=== PATIENT | male | born 1955 | race Caucasian/White ===

== ENCOUNTER 2021-05-01 18:21 | Observation (INO) ==
[2021-05-01 19:21] LABS: Basophils % 0.8 % (0.0-0.8); Eosinophils # 0.1 10*3/uL (0.0-0.87); Eosinophils % 2.1 % (0.00-10.9); Hematocrit 41.5 VOL% (42.0-52.0); Hemoglobin 13.7 GM/DL (14.0-18.0); Immature Granulocytes % 0.2 %; Immature Granulocytes Absolute 0.01 #; Lymphocytes # 1.2 10*3/uL (1.4-4.0); Lymphocytes % 25.6 % (21.2-54.2); Mean Corpuscular Volume 89.8 FL (87-102); Mean Platelet Volume 11.2 FL (9.6-12.0); Monocytes % 8.1 % (1.7-12.7); Neutrophils % 63.2 % (38.7-73.9); Platelet Count 96 T/CUMM (130-400); Red Blood Count 4.62 MC/CUMM (3.8-5.5); White Blood Count 4.8 T/CUMM (4-12)
[2021-05-01 20:18] LABS: Hypochromasia 2+; Microcytosis 2+
[2021-05-01 20:19] LABS: Platelet Estimate Decreased
[2021-05-01 20:21] LABS: Albumin 3.5 G/DL (3.4-5.0); Bilirubin,Total 0.6 MG/DL (0.20-1.00); Calcium 9.2 MG/DL (8.5-10.1); Osmolality,Calculated 277.5 MOS/KG (273-304); Potassium 3.6 MMOL/L (3.5-5.1); Total Protein 7.7 G/DL (6.4-8.2)
[2021-05-01] MEDS ORDERED: ASPIRIN 325 MG TABLET PO STA (20:21)
[2021-05-01] MEDS ORDERED: ONDANSETRON 4 MG/2 ML VIAL IV STA (20:21)
[2021-05-01] MEDS ORDERED: SODIUM CHLORIDE 0.9% 1,000 ML IV STA (20:21)
[2021-05-01] MEDS ORDERED: MORPHINE 2 MG/1 ML SYRINGE IV STA (20:21)
[2021-05-01] MEDS ORDERED: KETOROLAC 30 MG/1 ML VIAL IV STA (20:40)
[2021-05-01] MEDS ORDERED: KETOROLAC 30 MG/1 ML VIAL ONE (20:44)
[2021-05-01] MEDS ORDERED: MORPHINE 2 MG/1 ML SYRINGE IV PRN (21:50)
[2021-05-01] MEDS ORDERED: guaiFENesin/DM ER 600-30 MG TABLET PO PRN (21:50)
[2021-05-01] MEDS ORDERED: GLUCAGON 1 MG VIAL IM PRN ×2 (21:50)
[2021-05-01] MEDS ORDERED: hydrALAZINE 20 MG/1 ML VIAL IV PRN (21:50)
[2021-05-01] MEDS ORDERED: diphenhydrAMINE CAP 25 MG CAPSULE PO PRN (21:50)
[2021-05-01] MEDS ORDERED: ACETAMINOPHEN 325 MG TABLET PO PRN (21:50)
[2021-05-01] MEDS ORDERED: ONDANSETRON 4 MG/2 ML VIAL IV PRN (21:50)
[2021-05-01] MEDS ORDERED: NICOTINE 21 MG/24 HR PATCH TRANSDERM PRN (21:50)
[2021-05-01] MEDS ORDERED: DEXTROSE 50% 25 GM/50 ML VIAL IV PRN ×2 (21:50)
[2021-05-01] MEDS ORDERED: ZALEPLON 5 MG CAPSULE PO PRN (21:50)
[2021-05-01] MEDS ORDERED: HYDROmorphone 2 MG/1 ML VIAL IV SCH (23:47)
[2021-05-02] MEDS ORDERED: NITROGLYCERIN SL 0.4 MG TABLET SL PRN (00:16)
[2021-05-02 05:27] LABS: Basophils % 0.6 % (0.0-0.8); Eosinophils # 0.1 10*3/uL (0.0-0.87); Eosinophils % 1.7 % (0.00-10.9); Hematocrit 38.9 VOL% (42.0-52.0); Hemoglobin 12.8 GM/DL (14.0-18.0); Immature Granulocytes % 0.6 %; Immature Granulocytes Absolute 0.02 #; Lymphocytes % 27.4 % (21.2-54.2); Mean Corpuscular HGB Conc 32.9 GM/DL (32-36); Mean Corpuscular Volume 91.3 FL (87-102); Mean Platelet Volume 10.7 FL (9.6-12.0); Monocytes % 7.2 % (1.7-12.7); Neutrophils % 62.5 % (38.7-73.9); Red Blood Count 4.26 MC/CUMM (3.8-5.5); Red Cell Distribution Width 15.1 % (9.3-17.3); White Blood Count 3.6 T/CUMM (4-12)
[2021-05-02 05:30] LABS: Platelet Count 73 T/CUMM (130-400)
[2021-05-02 05:47] LABS: Hypochromasia Slight; Microcytosis 1+; Ovalocytes Slight; Platelet Estimate Decreased
[2021-05-02 05:49] LABS: Calcium 8.6 MG/DL (8.5-10.1); Osmolality,Calculated 283.3 MOS/KG (273-304); Potassium 3.6 MMOL/L (3.5-5.1)
[2021-05-02] MEDS: INSULIN REGULAR 100 UNIT/ML SUBCUT SCH ×2 (07:38→11:10)
[2021-05-02 08:23] LABS: Risk Ratio 4.51; VLDL Cholesterol 22.2 MG/DL
[2021-05-02] MEDS ORDERED: PANTOPRAZOLE 40 MG VIAL IV SCH (09:00)
[2021-05-02] MEDS ORDERED: ENOXAPARIN 40 MG/0.4 ML SYRINGE SUBCUT SCH (09:00)
[2021-05-02] MEDS ORDERED: LACTOBACILLUS RHAMNOSUS GG CAPSULE PO SCH (09:00)
[2021-05-02] MEDS ORDERED: ROSUVASTATIN 20 MG TABLET PO SCH (09:00)
[2021-05-02] MEDS ORDERED: ERGOCALCIFEROL 50,000 UNIT CAPSULE PO SCH (09:00)
[2021-05-02] MEDS ORDERED: ASPIRIN EC 81 MG TABLET PO SCH (09:00)
[2021-05-02] MEDS ORDERED: TAMSULOSIN 0.4 MG CAPSULE PO SCH (09:00)
[2021-05-02] MEDS ORDERED: carvediloL 6.25 MG TABLET PO SCH (09:00)
[2021-05-02] MEDS ORDERED: carvediloL 3.125 MG TABLET PO SCH (10:00)
[2021-05-02 11:05] VITALS: BP 126/64
== END 2021-05-02 12:35 | disposition home or self-care (01) ==
LOC: N.ED 18:21 → N.EDINP 18:21 → SUATTDRO 21:50 → UNDODISOB 05-02 04:24 → N.3E 05-02 04:24
PROVIDERS: ADMIT Internal Medicine; ATTEND Internal Medicine

== ENCOUNTER 2022-06-23 09:50 | Observation (INO) ==
[2022-06-22 15:42] LABS: Basophils % 1.1 % (0.0-0.8); Eosinophils # 0.1 10*3/uL (0.0-0.87); Eosinophils % 2.1 % (0.00-10.9); Hematocrit 42.3 VOL% (42.0-52.0); Immature Granulocytes % 0.5 %; Immature Granulocytes Absolute 0.02 #; Lymphocytes # 0.8 10*3/uL (1.4-4.0); Lymphocytes % 21.3 % (21.2-54.2); Mean Corpuscular HGB Conc 33.1 GM/DL (32-36); Mean Corpuscular Volume 92.2 FL (87-102); Mean Platelet Volume 10.8 FL (9.6-12.0); Monocytes # 0.2 10*3/uL (0.11-0.8); Monocytes % 6.1 % (1.7-12.7); Neutrophils % 68.9 % (38.7-73.9); Platelet Count 96 T/CUMM (130-400); Red Blood Count 4.59 MC/CUMM (3.8-5.5); Red Cell Distribution Width 14.5 % (9.3-17.3); White Blood Count 3.8 T/CUMM (4-12)
[2022-06-22 16:17] LABS: Albumin 3.2 G/DL (3.4-5.0); Bilirubin,Total 0.7 MG/DL (0.20-1.00); Calcium 8.8 MG/DL (8.5-10.1); Potassium 3.7 MMOL/L (3.5-5.1); Total Protein 7.6 G/DL (6.4-8.2)
[~2022-06-23 09:50] MED LIST: LACTATED RINGERS 1,000 ML IV SCH; cefTRIAXone 1,000 MG in SODIUM CHLORIDE 0.9% 100 ML IV ONE
[2022-06-23] MEDS ORDERED: FAMOTIDINE 20 MG TABLET PO ONE (11:21)
[2022-06-23] MEDS ORDERED: DIAZEPAM 5 MG TABLET PO ONE (11:21)
[2022-06-23] MEDS ORDERED: VANCOMYCIN INJ 1,250 MG in SODIUM CHLORIDE 0.9% 250 ML IV ONE (12:47)
[2022-06-23] MEDS ORDERED: propofoL 200 MG/20 ML VIAL IV ONE (14:25)
[2022-06-23] MEDS ORDERED: ONDANSETRON 4 MG/2 ML VIAL ONE (14:25)
[2022-06-23] MEDS ORDERED: LIDOCAINE 2% 5 ML VIAL ONE (14:25)
[2022-06-23] MEDS ORDERED: fentaNYL 100 MCG/2 ML VIAL ONE (14:25)
[2022-06-23] MEDS ORDERED: oxyCODONE/ACETAMINOPHEN 5-325 MG TABLET PO PRN (14:55)
[2022-06-23] MEDS ORDERED: diphenhydrAMINE 50 MG/1 ML VIAL IV PRN (14:55)
[2022-06-23] MEDS ORDERED: ONDANSETRON 4 MG/2 ML VIAL IV PRN ×2 (14:55→15:38)
[2022-06-23] MEDS ORDERED: HYDROmorphone 1 MG/1 ML SYRINGE IV PRN ×2 (14:55→15:38)
[2022-06-23] MEDS ORDERED: PROMETHAZINE 25 MG/1 ML VIAL IM PRN (14:55)
[2022-06-23] MEDS ORDERED: SIMETHICONE CHEW 125 MG TABLET PO PRN (14:55)
[2022-06-23] MEDS ORDERED: PROMETHAZINE 25 MG TABLET PO PRN (14:57)
[2022-06-23] MEDS: SODIUM CHLORIDE 0.9% 1,000 ML IV SCH (16:34)
[2022-06-23] MEDS: ACETAMINOPHEN 325 MG TABLET PO SCH ×2 (18:53→20:37)
[2022-06-23] MEDS: AMOXICILLIN 875 MG TABLET PO SCH (20:37)
[2022-06-23] MEDS: TAMSULOSIN 0.4 MG CAPSULE PO SCH (20:38)
[2022-06-23] MEDS: PANTOPRAZOLE 40 MG TABLET PO SCH (20:38)
[2022-06-23] MEDS ORDERED: VANCOMYCIN INJ 1,500 MG in SODIUM CHLORIDE 0.9% 500 ML IV SCH (21:00)
[2022-06-23] MEDS ORDERED: METOPROLOL SUCCINATE XL 25 MG TABLET PO SCH (21:00)
[2022-06-23] MEDS: DOCUSATE SODIUM 100 MG CAPSULE PO SCH (22:19)
[2022-06-24] MEDS: ACETAMINOPHEN 325 MG TABLET PO SCH ×3 (03:40→14:00)
[2022-06-24] MEDS: SODIUM CHLORIDE 0.9% 1,000 ML IV SCH (05:00)
[2022-06-24 05:04] LABS: Eosinophils # 0.1 10*3/uL (0.0-0.87); Hematocrit 37.5 VOL% (42.0-52.0); Hemoglobin 12.4 GM/DL (14.0-18.0); Immature Granulocytes % 0.3 %; Immature Granulocytes Absolute 0.01 #; Lymphocytes # 0.8 10*3/uL (1.4-4.0); Mean Corpuscular HGB Conc 33.1 GM/DL (32-36); Mean Corpuscular Volume 91.7 FL (87-102); Mean Platelet Volume 10.4 FL (9.6-12.0); Monocytes # 0.2 10*3/uL (0.11-0.8); Monocytes % 6.3 % (1.7-12.7); Neutrophils % 63.4 % (38.7-73.9); Platelet Count 81 T/CUMM (130-400); Red Blood Count 4.09 MC/CUMM (3.8-5.5); Red Cell Distribution Width 14.5 % (9.3-17.3)
[2022-06-24 05:21] LABS: Calcium 8.1 MG/DL (8.5-10.1); Osmolality,Calculated 278.4 MOS/KG (273-304); Potassium 4.3 MMOL/L (3.5-5.1)
[2022-06-24 05:23] LABS: Platelet Estimate Decreased
[2022-06-24] MEDS: AMOXICILLIN 875 MG TABLET PO SCH (08:45)
[2022-06-24] MEDS: TAMSULOSIN 0.4 MG CAPSULE PO SCH (09:15)
[2022-06-24] MEDS: DOCUSATE SODIUM 100 MG CAPSULE PO SCH (09:15)
[2022-06-24] MEDS: PANTOPRAZOLE 40 MG TABLET PO SCH (09:15)
[2022-06-24 15:56] VITALS: BP 117/64
== END 2022-06-24 16:41 | disposition home or self-care (01) ==
LOC: N.SDSINP 09:50 → N.OR 09:50 → N.3E 09:50 → N.SDSINP 09:58 → N.3E 18:08
PROVIDERS: ADMIT Surgery; ATTEND Surgery